=== PATIENT | female | born 1940 | race Caucasian/White ===

== ENCOUNTER → 2017-08-09 | Outpatient (CLI) | payer BC ==
[~2017-08-09] MED LIST: ALBU1AER9 PO; BUME1TAB PO; CHOL100010 PO; CZR25 PO; ESTCR; LEVO50TA6 PO; MAGN400T6 PO; MELA1TAB3 PO; METF500T5 PO; METO-217 PO; SIMV40TA2 PO; SITA100T3 PO; SPIR25TA PO
--- NOTE | 2017-08-10 07:53 | MAMMOGRAPHY REPORT ---
BILATERAL DIGITAL SCREENING MAMMOGRAM TOMOSYNTHESIS WITH CAD: 08/09/2017 CLINICAL HISTORY: Routine screening. Patient has no complaints. TECHNIQUE: Breast tomosynthesis in addition to standard 2D mammography was performed. Current study was also evaluated with a Computer Aided Detection (CAD) system. COMPARISON: Comparison is made to exams dated: 03/19/2016 mammogram, 08/14/2015 mammogram, 08/03/2016 ma mmogram, 08/14/2015 ultrasound, 08/01/2015 mammogram, and 12/22/2013 mammogram - [facility] nter. BREAST COMPOSITION: There are scattered areas of fibroglandular density in both breasts. FINDINGS: A metallic cardiac device projects over the superior left pectoralis muscle on the MLO view . There are benign appearing calcifications and mild vascular calcifications in the breasts. No new suspicious mass, architectural distortion or cluster of microcalcifications is seen. IMPRESSION: ACR BI-RADS CATEGORY 1: NEGATIVE There is no mammographic evidence of malignancy. A 1 year screening mammogram is recommended. The pa tient will receive written notification of the results. Approximately 10% of breast cancers are not detected with mammography. A negative mammographic report should not delay biopsy if a clinically suggestive mass is present. Akosua Rivera M.D. ay/:08/09/2017 21:00:50 Surveying Or Spatial Science Technician: Eileen DOLAN)(Neda), [facility] letter sent: Normal 1/2 BI-RADS Code: ACR BI-RADS Category 1: Negative
== END | disposition home or self-care (01) ==
LOC: C.MAMM 11:23
PROVIDERS: ATTEND Family Medicine
DX: Z12.31 Encounter for screening mammogram for malignant neoplasm of breast (principal)

== ENCOUNTER → 2017-08-23 | Outpatient (CLI) | payer BC | END | disposition home or self-care (01) | LOC: C.MAMM 12:36 | PROVIDERS: ATTEND Family Medicine | DX: M85.89 Other specified disorders of bone density and structure, multiple sites (principal) ==

== ENCOUNTER 2017-11-05 12:44 | Emergency (ER) | payer BC ==
[~2017-11-05] VITALS: Ht 152.4 cm; Wt 70.0 kg
[2017-11-05 12:46] VITALS: TEMP 36.3; Ht 152.4 cm; Wt 70.0 kg
[2017-11-05] MEDS ORDERED: PROMETHAZINE HCL INJ 6.25 MG in SODIUM CHLORIDE 0.9% 50ML 50 ML IV STA (12:59)
[2017-11-05] MEDS ORDERED: LEVALBUTEROL 1.25MG/0.5ML NEB INH STA (12:59)
[2017-11-05] MEDS ORDERED: SODIUM CHLORIDE 0.9% 1000ML 1,000 ML IV STA (12:59)
[2017-11-05] MEDS ORDERED: ONDANSETRON INJ 2 MG/ML 2 ML VIAL IV STA (12:59)
[2017-11-05] MEDS ORDERED: IPRATROPIUM BROMIDE NEB SOLN 0.02% 2.5 ML VIAL INH STA (12:59)
--- NOTE | 2017-11-05 13:10 | EMERGENCY ROOM VISIT NOTE ---
History Report prepared by Zenia: Bertram Hoover Under the Supervision of: Dr. Jd Serrato M.D. First contact with patient: 12:54 Chief Complaint: ILLNESS Stated Complaint: SICK,DIZZY,WEAK,GOING ON FOR ABOUT A WEEK History of Present Illness The patient is a 77 year old female who presents to the Emergency Room with complaints of persistent generalized illness beginning five days ago. Her symptoms include lightheadedness, a spinning sensation, nausea, diarrhea, cough , and generalized weakness. Her diarrhea began five days ago, no blood noted in the stool. The patient was seen by her PCP earlier this week for a cough and was told that her symptoms were likely related to a viral infection. She was discharged with an inhaler. The patient denies headache, SOB, chest pain, vomiting, abdominal pain, or known fevers. She has a pacemaker in place. She had a flu-shot this year. The patient notes that her neighbor was recently sick with similar symptoms. Source of History: patient Onset: Five days ago Position: other (generalized) Quality: other (illness) Timing: other (persistent) Associated Symptoms: + cough, + nausea, + diarrhea, + weakness (generalized) , No fevers (known), No headache, No chest pain, No SOB, No vomiting, No abdominal pain, No hematochezia Note: Additional symptoms: lightheadedness. Review of Systems See HPI for pertinent positives & negatives. A total of 10 systems reviewed and were otherwise negative. Past Medical & Surgical Medical Problems: (1) Anxiety State Nos (2) CHF (congestive heart failure) (3) Diabetes (4) Diverticulosis Colon (W/O Ment Of Hemorrhage) (5) Hyperparathyroidism, Unspecified (6) Other Forms Migraine W/O Intractable Migraine Family History Diabetes mellitus Social History Smoking Status: Unknown if Ever Smoked Drug Use: none Marital Status: Housing Status: lives with family Occupation Status: retired Current/Historical Medications Scheduled Bumetanide (Bumetanide), 1 TAB PO UD Cholecalciferol (Vitamin D3), 1 TAB PO DAILY Levalbuterol Tartrate (Levalbuterol Tartrate Hfa), 1 PUFF INH UD Levothyroxine Sodium (Levothyroxine Sodium), 1 TAB PO DAILY Losartan Potassium (Losartan Potassium), 25 MG PO QAM Magnesium Oxide (Mag-Ox), 400 MG PO HS Metoprolol Succinate (Toprol Xl), 50 MG PO DAILY Ondasetron Odt (Zofran Odt), 4 MG SL Q6H Simvastatin (Zocor), 40 MG PO HS Sitagliptin Phosphate (Januvia), 100 MG PO QAM Spironolactone (Aldactone), 12.5 MG PO DAILY Venlafaxine Hcl (Effexor Extended Rel), 1 CAP PO DAILY Scheduled PRN Melatonin-Pyridoxine (Melatonin), 10 MG PO HS PRN for Sleep Allergies Coded Allergies: Hydrocodone (Unverified Adverse Reaction, Intermediate, nausea,lightheaded , headache, 11/05/17) CI Pigment Blue 63 (Unverified Adverse Reaction, Mild, headache, 11/05/17) Duloxetine (Unverified Adverse Reaction, Mild, headache, 11/05/17) Sertraline (Verified Adverse Reaction, Mild, headache, 11/05/17) Escitalopram (Unverified Adverse Reaction, Unknown, headache, 11/05/17) Meperidine (Verified Adverse Reaction, Unknown, headache, 11/05/17) Uncoded Allergies: CONTRAST MEDIA (Allergy, Severe, KIDNEY FAILURE, 09/26/16) Physical Exam Vital Signs Date Time Temp Pulse Resp B/P (MAP) Pulse Ox O2 Delivery O2 Flow Rate FiO2 11/05/17 17:17 80 16 125/74 96 11/05/17 16:56 83 18 122/79 94 Room Air 11/05/17 14:38 69 18 112/69 98 Room Air 11/05/17 13:33 69 18 134/82 97 Room Air 11/05/17 13:16 70 20 96 Room Air 11/05/17 12:58 69 11/05/17 12:46 36.3 73 20 151/84 96 Room Air Physical Exam GENERAL: Patient is in no acute distress. HEENT: No acute trauma, normocephalic atraumatic, mucous membranes moist, no nasal congestion, no scleral icterus. No nystagmus. PERRL. NECK: No stridor, no adenopathy, no meningismus, trachea is midline. LUNGS: Clear to auscultation bilaterally, no wheeze, no rhonchi, breath sounds equal. HEART: Without murmurs gallops or rubs, regular rate and rhythm. ABDOMEN: Soft, nontender, bowel sounds positive, no hernias, no peritonitis. EXTREMITIES: No cyanosis or edema, full range of motion of all the joints without pain or difficulty, no signs for acute trauma. NEUROLOGIC: Oriented x 3, no acute motor or sensory deficits, no focal weakness. No cerebellar deficits. SKIN: No rash, no jaundice, mild diaphoresis. Medical Decision & Procedures ER Provider Diagnostic Interpretation: Radiology results as stated below per my review and radiologist interpretation: CHEST ONE VIEW PORTABLE FINDINGS: Lung volumes are normal. No pneumothorax or pleural effusion is present. A left subclavian biventricular pacer/AICD is in place. There is no evidence of pulmonary edema. There is no consolidation to suggest pneumonia. Cardiomediastinal silhouette is stable. Appearance of the chest is unchanged. IMPRESSION: No acute cardiopulmonary findings. Electronically signed by: Clifford Deleon M.D. 11/05/2017 1:22 PM Laboratory Results 11/05/17 13:20 Red Blood Count 5.14, Mean Corpuscular Volume 81.7, Mean Corpuscular Hemoglobin 27.4, Mean Corpuscular Hemoglobin Concent 33.6, Mean Platelet Volume 9.8, Neutrophils (%) (Auto) 68.6, Lymphocytes (%) (Auto) 22.4, Monocytes (%) (Auto) 6.1, Eosinophils (%) (Auto) 1.4, Basophils (%) (Auto) 0.5, Neutrophils # (Auto) 4.02, Lymphocytes # (Auto) 1.31, Monocytes # (Auto) 0.36, Eosinophils # (Auto) 0.08, Basophils # (Auto) 0.03 11/05/17 13:20 Test 11/05/17 13:20 11/05/17 14:08 White Blood Count 5.86 K/uL (4.8-10.8) Red Blood Count 5.14 M/uL (4.2-5.4) Hemoglobin 14.1 g/dL (12.0-16.0) Hematocrit 42.0 % (37-47) Mean Corpuscular Volume 81.7 fL (80-100) Mean Corpuscular Hemoglobin 27.4 pg (25-34) Mean Corpuscular Hemoglobin Concent 33.6 g/dl (32-36) Platelet Count 223 K/uL (130-400) Mean Platelet Volume 9.8 fL (7.4-10.4) Neutrophils (%) (Auto) 68.6 % Lymphocytes (%) (Auto) 22.4 % Monocytes (%) (Auto) 6.1 % Eosinophils (%) (Auto) 1.4 % Basophils (%) (Auto) 0.5 % Neutrophils # (Auto) 4.02 K/uL (1.4-6.5) Lymphocytes # (Auto) 1.31 K/uL (1.2-3.4) Monocytes # (Auto) 0.36 K/uL (0.11-0.59) Eosinophils # (Auto) 0.08 K/uL (0-0.5) Basophils # (Auto) 0.03 K/uL (0-0.2) RDW Standard Deviation 51.4 fL (36.4-46.3) RDW Coefficient of Variation 17.2 % (11.5-14.5) Immature Granulocyte % (Auto) 1.0 % Immature Granulocyte # (Auto) 0.06 K/uL (0.00-0.02) Anion Gap 10.0 mmol/L (3-11) Est Creatinine Clear Calc Drug Dose 39.3 ml/min Estimated GFR () 58.2 Estimated GFR (Non- 50.2 BUN/Creatinine Ratio 16.1 (10-20) Calcium Level 8.7 mg/dl (8.5-10.1) Magnesium Level 2.3 mg/dl (1.8-2.4) Total Bilirubin 0.5 mg/dl (0.2-1) Aspartate Amino Transf (AST/SGOT) 31 U/L (15-37) Alanine Aminotransferase (ALT/SGPT) 49 U/L (12-78) Alkaline Phosphatase 97 U/L (45-117) Total Creatine Kinase 128 U/L (26-192) Troponin I < 0.015 ng/ml (0-0.045) Total Protein 7.6 gm/dl (6.4-8.2) Albumin 4.1 gm/dl (3.4-5.0) Globulin 3.5 gm/dl (2.5-4.0) Albumin/Globulin Ratio 1.2 (0.9-2) Thyroid Stimulating Hormone (TSH) 3.770 uIu/ml (0.300-4.500) Free Thyroxine 1.10 ng/dl (0.80-1.60) Influenza Type A Antigen POS for Influ A (NEG) Influenza Type B Antigen Neg for Influ B (NEG) Bedside Lactic Acid Venous 2.68 mmol/L (0.90-1.70) Laboratory results reviewed by me. Medications Administered Medications (Trade) Dose Ordered Sig/Melissa Route Start Time Stop Time Status Last Admin Dose Admin Ondansetron HCl (Zofran Inj) 4 mg NOW STAT IV 11/05/17 12:59 11/05/17 13:04 DC 11/05/17 13:27 4 MG Sodium Chloride 1,000 ml @ 999 mls/hr Q1H1M STAT IV 11/05/17 12:59 11/05/17 13:59 DC 11/05/17 13:27 999 MLS/HR Promethazine HCl 6.25 mg/Sodium Chloride 50.25 ml @ 204 mls/hr NOW STAT IV 11/05/17 12:59 11/05/17 13:13 DC 11/05/17 13:27 204 MLS/HR Levalbuterol (Xopenex 1.25MG/ 0.5ML Neb) 1.25 mg NOW STAT INH 11/05/17 12:59 11/05/17 13:04 DC 11/05/17 13:14 1.25 MG Ipratropium [place] (Atrovent 0.02% 0.5MG/2.5ML Neb) 0.5 mg NOW STAT INH 11/05/17 12:59 11/05/17 13:04 DC 11/05/17 13:14 0.5 MG ECG Indication: weakness Rate (beats per minute): 66 Rhythm: other (Ventricularly Paced) Findings: other (no dysrhythmia, no obvious ischemia. ) ED Course 1256: The patient was evaluated in room B8. A complete history and physical exam was performed. 1259: Ordered Atrovent 0.02% 0.5 mg/2.5 ml Neb 0.5 mg INH, Xopenex 1.25 mg/0.5 mL Neb 1.25 mg INH, Promethazine HCl 6.25 mg/Sodium Chloride 50.25 ml @ 204 mls/ hr IV, Sodium Chloride 1000 ml @ 999 mls/hr IV, Zofran Inj 4 mg IV. 1428: I reassessed the patient. She feels better and would like to go home. Patient will undergo an ambulatory trial. 1440: The patient failed her ambulatory trial. 1510: Upon reexamination the patient is resting comfortavbly. I discussed results and treatment plan with the patient. She verbalizes agreement and understanding. I spoke with Dr. Mohsen Rice of the [facility]. We discussed the patient's results and findings. The patient will be evaluated by [facility] for further management. 1705: I spoke with the patient after speaking with Dr. Mohsen Rice of the [facility]. She feels much better and feels comfortable going home. We discussed her treatment plan, and she verbalized agreement and understanding. The patient will be discharged home. Medical Decision The patient is a 77 year old female who presents to the ED with complaints of generalized illness. Differential diagnoses considered include dehydration, electrolyte imbalance, influenza, pneumonia, bronchitis, UTI, vertigo, and stroke. There is no leukocytosis or concerning anemia. No significant electrolyte abnormality, kidney failure or hepatitis. Chest x-ray does not show pneumonia or CHF. EKG shows a ventricular pacemaker, no acute ischemia. Cardiac enzyme testing 1 is not consistent with acute cardiac injury. Influenza testing was positive for influenza A. Lactic acid level was slightly elevated, consistent likely with dehydration. On exam, there were no focal neurologic deficits. The patient appeared to be in a euthyroid state. The patient received IV Zofran, IV Phenergan and IV saline. She was given a Xopenex Atrovent neb. She was feeling better and did attempt to walk in the ER , she had a difficult time standing on her own. A hospital stay was felt warranted. The patient was seen by the hospitalist and was again feeling better. She did walk around the ER a second time, this time she did well. She did not want to stay in the hospital. The patient is being discharged on Zofran for nausea. She will use her albuterol inhaler every 4-6 hours for bronchospasm, hydration and rest were encouraged. Tylenol for aches and pain. If worsening, she will return. She appears to have acute influenza-this has caused her symptom complex. Medication Reconcilliation Current Medication List: was personally reviewed by me Blood Pressure Screening Patient's blood pressure: Normal blood pressure Blood pressure disposition: Did not require urgent referral Consults Time Called: 1505 Consulting Physician: Dr. Mohsen Rice of the [facility] Returned Call: 1510 Discussed the patient's case. The patient will be evaluated for further management. 1701: I spoke with Dr. Dr. Mohsen Rice of the [facility] again. He has evaluated the patient, and feels that the patient would be safe for discharge. The patient agrees, and states that she feels much better. Impression Primary Impression: Influenza Additional Impressions: Weakness Vomiting and diarrhea Scribe Attestation The scribe's documentation has been prepared under my direction and personally reviewed by me in its entirety. I confirm that the note above accurately reflects all work, treatment, procedures, and medical decision making performed by me. Departure Information Dispostion Home / Self-Care Prescriptions Ondasetron Odt (ZOFRAN ODT) 4 Mg Tab 4 MG SL Q6H for Nausea, #10 TAB Prov: Jd Serrato M.D. 11/05/17 Referrals Brenden Mata M.D. (PCP) Forms HOME CARE DOCUMENTATION FORM, IMPORTANT VISIT INFORMATION, WORK / SCHOOL INSTRUCTIONS Patient Instructions My [facility] Additional Instructions fluids rest tylenol for aches and pain zofran 1 tab every 6 hours for nausea inhaler 3 puffs every 6 hours return if worsening as we discussed see janine elizabeth next week for a recheck Problem Qualifiers
[2017-11-05 13:16] VITALS: PULSE 70; O2SAT 96
--- NOTE | 2017-11-05 13:23 | DIAGNOSTIC IMAGING REPORT ---
CHEST ONE VIEW PORTABLE CLINICAL HISTORY: EVALUATE RESPIRATORY DISTRESS.DYSPNEA COMPARISON STUDY: Chest radiograph September 26, 2016. FINDINGS: Lung volumes are normal. No pneumothorax or pleural effusion is present. A left subclavian biventricular pacer/AICD is in place. There is no evidence of pulmonary edema. There is no consolidation to suggest pneumonia. Cardiomediastinal silhouette is stable. Appearance of the chest is unchanged. IMPRESSION: No acute cardiopulmonary findings. Electronically signed by: Clifford Deleon M.D. 11/05/2017 1:22 PM Dictated Date/Time: 11/05/2017 1:21 PM
[2017-11-05] MEDS ORDERED: EFFSR150 PO (13:38)
[2017-11-05] MEDS ORDERED: LEVA45AE INH (13:38)
[2017-11-05] MEDS ORDERED: BUME0.5T3 PO (13:38)
[2017-11-05] MEDS ORDERED: LEVO25TA5 PO (13:38)
[2017-11-05] MEDS ORDERED: CHOL1000 PO (13:38)
[2017-11-05 13:52] LABS: BASO % 0.5 %; BASO ABS # 0.03 K/uL (0-0.2); EOS % 1.4 %; EOS ABS # 0.08 K/uL (0-0.5); HEMOGLOBIN 14.1 g/dL (12.0-16.0); IG# 0.06 K/uL (0.00-0.02); LYMPH % 22.4 %; LYMPH ABS # 1.31 K/uL (1.2-3.4); MEAN CELL VOLUME 81.7 fL (80-100); MEAN CORPUSCULAR HEMOGLOBIN 27.4 pg (25-34); MEAN CORPUSCULAR HGB CONC 33.6 g/dl (32-36); MEAN PLATELET VOLUME 9.8 fL (7.4-10.4); MONO % 6.1 %; MONO ABS # 0.36 K/uL (0.11-0.59); NEUT % 68.6 %; NEUT ABS # 4.02 K/uL (1.4-6.5); PLATELET COUNT 223 K/uL (130-400); RED CELL DISTRIBUTION WIDTH CV 17.2 % (11.5-14.5); RED CELL DISTRIBUTION WIDTH SD 51.4 fL (36.4-46.3); WHITE BLOOD COUNT 5.86 K/uL (4.8-10.8)
[2017-11-05 14:10] LABS: ALBUMIN 4.1 gm/dl (3.4-5.0); ALT/SGPT 49 U/L (12-78); BLOOD UREA NITROGEN 17 mg/dl (7-18); CALCIUM 8.7 mg/dl (8.5-10.1); CARBON DIOXIDE 23 mmol/L (21-32); CREATININE 1.08 mg/dl (0.60-1.20); GLUCOSE 194 mg/dl (70-99); POTASSIUM 3.8 mmol/L (3.5-5.1); SODIUM 136 mmol/L (136-145)
[2017-11-05 14:13] LABS: INFLUENZA B ANTIGEN Neg for Influ B (NEG)
[2017-11-05 14:19] LABS: ALKALINE PHOSPHATASE 97 U/L (45-117); AST/SGOT 31 U/L (15-37); TOTAL PROTEIN 7.6 gm/dl (6.4-8.2)
[2017-11-05] MEDS ORDERED: ONDA4TAB10 SL (17:12)
[2017-11-05 17:17] VITALS: BP 125/74; PULSE 80; O2SAT 96
--- NOTE | 2018-01-12 11:26 | Progress Note ---
Progress Note Date of Service 2017. Progress Note Patient will not be charged for this encounter I did not do an official consult or physical exam. I was called by the ER physician to admit the patient for influenza. Patient's vitals were all stable, patient has no complaint that prompts admission and patient did not want to be admitted Patient had positive flu, symptoms were improving for the last 5 days. Normal oxygen level at rest and ambulation. normal BP and heart rate Patient did not meet criteria for admission neither the patient wanted to be admitted
== END 2017-11-05 17:20 | disposition home or self-care (01) ==
LOC: C.EDB 12:45
DX: J11.1 Influenza due to unidentified influenza virus with other respiratory manifestations (principal); J11.2 Influenza due to unidentified influenza virus with gastrointestinal manifestations; F41.9 Anxiety disorder, unspecified; E11.9 Type 2 diabetes mellitus without complications; K57.30 Diverticulosis of large intestine without perforation or abscess without bleeding; E21.3 Hyperparathyroidism, unspecified; Z79.84 Long term (current) use of oral hypoglycemic drugs; Z95.0 Presence of cardiac pacemaker; Z88.6 Allergy status to analgesic agent; Z91.048 Other nonmedicinal substance allergy status; Z88.8 Allergy status to other drugs, medicaments and biological substances; Z88.5 Allergy status to narcotic agent; Z91.041 Radiographic dye allergy status; Z83.3 Family history of diabetes mellitus

== ENCOUNTER → 2018-03-24 | Outpatient (CLI) | payer BC ==
[~2018-03-24] MED LIST changes: -ALBU1AER9 PO; +BUME0.5T3 PO; -BUME1TAB PO; +CHOL1000 PO; -CHOL100010 PO; +EFFSR150 PO; -ESTCR; +LEVA45AE INH; +LEVO25TA5 PO; -LEVO50TA6 PO; -METF500T5 PO; +ONDA4TAB10 SL
--- NOTE | 2018-03-24 11:59 | DIAGNOSTIC IMAGING REPORT ---
CHEST 2 VIEWS ROUTINE CLINICAL HISTORY: R05 PERSISTENT COUGH COMPARISON STUDY: 11/03/2017 FINDINGS: The heart is normal in size. There is a left-sided pacer/defibrillator present. There is no focal pulmonary consolidation. There are no pleural effusions. There is no failure.[ IMPRESSION: No active disease in the chest. Electronically signed by: Danny Aleman M.D. 03/24/2018 11:57 AM Dictated Date/Time: 03/24/2018 11:57 AM
== END | disposition home or self-care (01) ==
LOC: C.RAD1850 11:43
PROVIDERS: ATTEND Student in an Organized Health Care Education/Training Program
DX: R05 Cough (principal)